=== PATIENT | female | born 1935 | race Caucasian/White ===

== ENCOUNTER 2021-06-30 09:06 | Outpatient (REF) | payer MEDICARE, SELFPAY ==
[2021-06-30 10:02] LABS: Hematocrit 46.6 % (37.0-47.0); Hemoglobin 14.8 g/dl (12.0-16.0); Mean Corpuscular HGB Conc 31.8 g/dl (31.0-35.0); Mean Corpuscular Hemoglobin 30.5 pg (27.0-33.0); Mean Corpuscular Volume 96.1 fL (80.0-98.0); Mean Platelet Volume 10.5 fL (9.4-12.3); Platelet Count 313 X10*3/uL (160-400); Red Blood Count 4.85 X10*6/uL (4.20-5.50); Red Cell Distribution Width 13.7 % (11.0-16.0); White Blood Count 5.8 X10*3/uL (4.8-10.8)
[2021-06-30 11:12] LABS: Anion Gap 12 (12-20); Blood Urea Nitrogen 15 mg/dL (9-16); Calcium 10.8 mg/dL (8.4-10.2); Carbon Dioxide 25 mmol/L (22-29); Chloride 105 mmol/L (96-108); Cholesterol 225 mg/dL; Estimated Glomerular Filt Rate > 60; Glucose Fasting 138 mg/dL (60-99); HDL Cholesterol 68 mg/dL; LDL Cholesterol Calculated 127 mg/dl; Potassium 4.4 mmol/L (3.3-5.1); Sodium 138 mmol/L (135-145); Triglycerides 150 mg/dL
== END 2021-06-30 09:07 | disposition home or self-care (01) ==
LOC: HO.LAB 09:06
PROVIDERS: Visit Provider Nurse Practitioner Family
DX: E66.3 Overweight (principal); E78.00 Pure hypercholesterolemia, unspecified; R41.3 Other amnesia
CPT/HCPCS: 36415; 80048; 80061; 82947; 85027

== ENCOUNTER 2021-08-03 08:59 | Outpatient (REF) | payer MEDICARE, SELFPAY ==
[2021-08-03 10:05] LABS: Estimated Average Glucose 105 mg/dL; Hemoglobin A1c % 5.3 %
[2021-08-08 10:53] LABS: Calcium, Ionized 5.8 mg/dL (4.8-5.6)
[2021-08-12 17:02] LABS: Parathyroid Hormone Related Pr 10 pg/mL (11-20)
== END 2021-08-03 09:00 | disposition home or self-care (01) ==
LOC: HO.LAB 08:59
PROVIDERS: Visit Provider Nurse Practitioner Family
DX: R73.01 Impaired fasting glucose (principal); E83.52 Hypercalcemia
CPT/HCPCS: 36415; 82330; 83036; 83519

== ENCOUNTER 2021-12-07 08:41 | Outpatient (REF) | payer MEDICARE, SELFPAY ==
[2021-12-07 10:07] LABS: Alanine Aminotransferase 18 U/L (0-31); Alkaline Phosphatase 102 U/L (39-117); Anion Gap 15 (12-20); Aspartate Amino Transferase 19 U/L (5-31); Bilirubin Total 1.4 mg/dL (0.0-1.0); Blood Urea Nitrogen 15 mg/dL (9-16); Calcium 10.9 mg/dL (8.4-10.2); Carbon Dioxide 26 mmol/L (22-29); Chloride 103 mmol/L (96-108); Cholesterol 237 mg/dL; Estimated Glomerular Filt Rate > 60; Glucose Fasting 117 mg/dL (60-99); HDL Cholesterol 70 mg/dL; LDL Cholesterol Calculated 135 mg/dl; Potassium 5.1 mmol/L (3.3-5.1); Sodium 139 mmol/L (135-145); Total Protein 7.3 g/dL (6.5-8.0); Triglycerides 164 mg/dL
[2021-12-07 10:30] LABS: Vitamin D 25-OH Total 31.2 ng/mL (>30)
[2021-12-08 12:26] LABS: Calcium (PTHI) 11.2 mg/dL (8.6-10.4); PTHI 169 pg/mL (16-77)
[2021-12-08 17:52] LABS: Calcium, Random Urine 15.1 mg/dL
[2021-12-09 17:22] LABS: Calcium, Ionized 5.7 mg/dL (4.8-5.6)
== END 2021-12-07 08:42 | disposition home or self-care (01) ==
LOC: HO.LAB 08:41
PROVIDERS: Visit Provider Internal Medicine
DX: E83.52 Hypercalcemia (principal); E78.5 Hyperlipidemia, unspecified
CPT/HCPCS: 36415; 80053; 80061; 82306; 82310; 82330; 83970

== ENCOUNTER → 2021-12-29 09:41 | Outpatient (BNVA) | payer MEDICARE, SELFPAY | PROVIDERS: PCP Internal Medicine; Visit Provider Internal Medicine Endocrinology, Diabetes & Metabolism | DX: E21.3 Hyperparathyroidism, unspecified (principal) | CPT/HCPCS: 99202 ==

== ENCOUNTER 2022-02-09 13:42 | Outpatient (REF) | payer MEDICARE, SELFPAY ==
--- NOTE | ~2022-02-09 | US_ITS ---
EXAMINATION: US RETROPERITONEAL LIMITED (RENAL ONLY) CLINICAL INFORMATION: Hyperparathyroidism, unspecified. COMPARISON: None TECHNIQUE: Real-time imaging of the kidneys. Limited visualization due to bowel gas and body habitus. FINDINGS: RIGHT KIDNEY: 8.3 x 5.0 x 3.9 cm (SAG x AP x TRV). Right renal calculi measure 0.3 cm mid pole and 0.2 cm upper pole. No hydronephrosis. Limited visualization. LEFT KIDNEY: 8.3 x 4.1 x 3.9 cm (SAG x AP x TRV). Mild fullness of the left renal collecting system with echogenic foci possibly representing debris. No obstructing renal calculi identified. Limited visualization. ADDITIONAL FINDINGS: Incidental note made on limited views of the gallbladder of cholelithiasis including a large stone measuring approximately 1.6 cm. Gallbladder was not distended, limiting evaluation. Dedicated views of the gallbladder with appropriate preparation recommended for further evaluation. US/US renal BI IMPRESSION: 1. Right renal nonobstructing calculi. 2. Mild fullness left renal collecting system with echogenic foci characteristic of debris. No left renal obstructing calculi identified. Limited visualization. 3. Incidental note made on limited views of the gallbladder of cholelithiasis including a large stone measuring approximately 1.6 cm. Gallbladder was not distended, limiting evaluation. Dedicated views of the gallbladder with appropriate preparation recommended for further evaluation.
--- NOTE | ~2022-02-09 | MM_ITS ---
EXAMINATION: BONE DENSITOMETRY CLINICAL INDICATION: Hyperparathyroidism, unspecified. COMPARISON: Previous BD dated 02/13/2011 and baseline BD dated 10/21/2007, spine and left hip. This is the patient's baseline examination for the left forearm radius 33%. TECHNIQUE: Using a [employer]ricity DXA System (software version: 13.1) manufactured by [employer], dual-energy x-ray absorptiometry was performed of the lumbar spine and left forearm radius 33%. The images are of good technical quality. Summary results are attached. FINDINGS: AP SPINE L1-L4: Current: BMD 0.762 g/cm2, Z-score -1.2, T-score -3.5, osteoporosis, 15.2% decrease from previous, 21.5% decrease from baseline (<5% change is not significant). Prior: BMD 0.899 g/cm2. Baseline: BMD 0.971 g/cm2. LEFT FEMUR, NECK: Current: BMD 0.511 g/cm2, Z-score -1.1, T-score -3.8, osteoporosis. Prior: BMD 0.683 g/cm2. Baseline: BMD 0.693 g/cm2. LEFT FEMUR, TOTAL: Current: BMD 0.566 g/cm2, Z-score -0.9, T-score -3.5, osteoporosis, 26.9% decrease from previous, 30.9% decrease from baseline (<5% change is not significant). Prior: BMD 0.774 g/cm2. Baseline: BMD 0.819 g/cm2. LEFT FOREARM RADIUS 33%: BMD 0.348 g/cm2, Z-score -2.6, T-score -6.0, osteoporosis. Prior: Not previously measured. IDENTIFIED RISK FACTORS: Dementia, menopause. HISTORY OF FRACTURE: None listed. MEDICATIONS: None listed. MM/XR DEXA appendicular skeleton IMPRESSION: 1. DIAGNOSIS: Osteoporosis based on the lowest T-score value of -6.0 in the forearm radius 33% applying World Health Organization criteria. 2. 10-YEAR FRACTURE RISK PREDICTION, FRAX: According to the guidelines, FRAX calculation should only be performed on patients in the osteopenia bone density category. Therefore, FRAX was not performed on this patient. 3. Treatment Recommendations: NOF guidelines recommend consideration for treatment in postmenopausal women and men age 50 and older presenting with the following: -A hip or vertebral (clinical or morphometric) fracture. -T-score less than or equal to -2.5 at the femoral neck or spine after appropriate evaluation to exclude secondary causes. -Low bone mass at the hip or spine and a 10-year fracture probability by FRAX of greater than or equal to 3% for hip fracture or greater than or equal to 20% for major osteoporotic fracture based on the [place] adapted WHO algorithm. 4. Other Recommendations: All treatment decisions require clinical judgment and consideration of individual patient factors, including patient preferences, comorbidities, previous drug use, risk factors not captured in the FRAX model (e.g. frailty, falls, vitamin D deficiency, increased bone turnover, interval significant decline in bone density) and possible under or overestimation of fracture risk by FRAX. Additional medical evaluation for secondary cause of low bone mineral density may be appropriate. FUTURE SCAN RECOMMENDATION: People with diagnosed cases of osteoporosis or at high risk for fracture should have regular bone mineral density tests. For patients eligible for Medicare, routine testing is allowed once every 2 years. The testing frequency can be increased to one year for patients who have rapidly progressing disease, those who are receiving or discontinuing medical therapy to restore bone mass, or have additional risk factors.
== END 2022-02-09 13:43 | disposition home or self-care (01) ==
LOC: HO.MAMMO 13:42
PROVIDERS: PCP Internal Medicine; Visit Provider Internal Medicine Endocrinology, Diabetes & Metabolism
DX: Z13.820 Encounter for screening for osteoporosis (principal); E21.3 Hyperparathyroidism, unspecified; F03.90 Unspecified dementia, unspecified severity, without behavioral disturbance, psychotic disturbance, mood disturbance, and anxiety; Z78.0 Asymptomatic menopausal state
CPT/HCPCS: 76775; 77081

== ENCOUNTER 2022-04-29 09:53 | Outpatient (REF) | payer MEDICARE, SELFPAY ==
[2022-04-29 11:43] LABS: Albumin Level 3.8 g/dL (3.5-5.0); Calcium 10.6 mg/dL (8.4-10.2); Estimated Glomerular Filt Rate > 60
== END 2022-04-29 09:54 | disposition home or self-care (01) ==
LOC: HO.LAB 09:53
PROVIDERS: PCP Internal Medicine; Visit Provider Internal Medicine Endocrinology, Diabetes & Metabolism
DX: E21.3 Hyperparathyroidism, unspecified (principal)
CPT/HCPCS: 36415; 82040; 82310; 82565

== ENCOUNTER → 2022-05-02 09:59 | Outpatient (BNVA) | payer MEDICARE, SELFPAY | PROVIDERS: PCP Internal Medicine; Visit Provider Internal Medicine Endocrinology, Diabetes & Metabolism | DX: E21.0 Primary hyperparathyroidism (principal) | CPT/HCPCS: 99212 ==

== ENCOUNTER 2022-08-16 09:00 | Outpatient (REF) | payer MEDICARE, SELFPAY ==
[2022-08-16 10:17] LABS: Anion Gap 10 (12-20); Blood Urea Nitrogen 12 mg/dL (9-16); Calcium 10.9 mg/dL (8.4-10.2); Carbon Dioxide 29 mmol/L (22-29); Chloride 105 mmol/L (96-108); Estimated Glomerular Filt Rate > 60; Glucose Fasting 107 mg/dL (60-99); Potassium 4.9 mmol/L (3.3-5.1); Sodium 139 mmol/L (135-145)
== END 2022-08-16 09:01 | disposition home or self-care (01) ==
LOC: HO.LAB 09:00
PROVIDERS: PCP Internal Medicine; Visit Provider Nurse Practitioner Family
DX: Z13.1 Encounter for screening for diabetes mellitus (principal)
CPT/HCPCS: 36415; 80048

== ENCOUNTER 2022-09-13 09:17 | Outpatient (REF) | payer MEDICARE, SELFPAY ==
[2022-09-13 10:09] LABS: Estimated Average Glucose 100 mg/dL; Hemoglobin A1c % 5.1 %
== END 2022-09-13 09:18 | disposition home or self-care (01) ==
LOC: HO.LAB 09:17
PROVIDERS: Visit Provider Nurse Practitioner Family
DX: R73.01 Impaired fasting glucose (principal)
CPT/HCPCS: 36415; 83036

== ENCOUNTER 2023-05-29 14:14 | Outpatient (AMB) | payer MEDICARE, SELFPAY ==
[2023-05-29 14:32] VITALS: BP 126/70; BMI 25.6
--- NOTE | 2023-05-29 14:32 | MHC.PC.OV ---
Vital Signs 05/29/23 14:32 Height 4 ft 11 in Weight 127 lb BMI 25.6 BP 126/70 Blood Pressure Location Lt brachial Position Sitting Intake Visit Reasons: follow up for dementia Intake Note: Patient here for follow up dementia Call Center Specialist Required: No Accompanied by: niece Allergies No Known Allergies Allergy (Verified 05/29/23 14:49) Medication List - Last Reconciled 05/29/23 by Alicia Song MD donepezil 10 mg PO DAILY Tobacco use date assessed: 05/29/23 Fall risk assessment: No Falls in past year Last assessed Fall Risk: 05/29/23 Dental Screening Dental Screen Date: 05/29/23 Did you have a dental visit in the last 12 months?: Yes Did you have a dental problem in the last 6 months where you did not have access to dental care?: No Was dental information given to patient?: Patient has dentist HPI HPI Comments History of Present Illness Details This is an 87-year-old female that comes accompanied by niece for follow-up on her memory loss. She has severe Alzheimer's dementia and had a mini-mental exam today score in 17/30. She follows with Neurology which prescribe her donepezil. She is able to walk with no assistive device and lives by herself but has many people constantly watching her and visiting her including family, neighbors and LUG LOADER. She is able to eat by herself but not able to cook. She is also not able to get dressed/undress on her own. Not able to bathe or do toileting. She definitely needs supervision in all the basic activities of daily living except eating and mobility transfer. [facility] Medical History (Updated 05/29/23 @ 15:27 by Alicia Song MD) Hyperparathyroidism Hypoparathyroidism Mild cognitive impairment Memory change Surgical History History of removal of pigmented skin lesion History of biopsy History of abdominoplasty History of carpal tunnel release History of nasal surgery Family History Father Alcoholic cirrhosis Mother Past heart attack Maternal Grandmother Cancer Maternal Grandfather CVD (cardiovascular disease) Past heart attack Brother Past heart attack Sister No problems noted. Family/Other Substance use disorder Social History Household Members: None Housing: House Alcohol intake: former Patient Tobacco Use Status: Former Tobacco user e-Cigarette/Vaping Use: Never Used Second Hand Smoke Exposure: No service: No Current occupational status: retired Cognitive needs: Yes Hearing needs: No Vision needs: Yes (Glasses) Questionnaire PHQ-9 Over the last 2 weeks, how often have you been bothered by any of the following problems? 1. Little interest or pleasure in doing things: not at all 2. Feeling down, depressed, or hopeless: not at all 3. Trouble falling or staying asleep, or sleeping too much: not at all 4. Feeling tired or having little energy: not at all 5. Poor appetite or overeating: not at all 6. Feeling bad about yourself - or that you are a failure or have let yourself or your family down: not at all 7. Trouble concentrating on things, such as reading the newspaper or watching television: not at all 8. Moving or speaking so slowly that other people could have noticed. Or the opposite - being so fidgety or restless that you have been moving around a lot more than usual: not at all 9. Thoughts that you would be better off or of hurting yourself in some way: not at all Total score: 0 Depression Screening Interpretation: Negative Depression Screening Done: Yes 84751 - PHQ-9 Billing: Yes Source: Developed by Drs. Kishor Mendenhall, Lelo Rai, Emir Hartman and colleagues, with an educational jaymie from [employer] Thrive Questionnaire Date Thrive assessed: 05/29/23 I am a: Parent/Caregiver What is your living situation today?: I have a steady place to live Within the past 12 months, did the food you bought not last and you didn't have the money to get more?: Never true Within the past 12 months, did you worry whether your food would run out before you got money to buy more?: Never true Do you have trouble paying for medicines?: No Do you have trouble getting transportation to medical appointments?: No Do you have trouble paying your heating and electricity bill?: No Do you have trouble taking care of your child, family member or friend?: No Do you have trouble with day-to-day activities such as bathing, preparing meals, shopping, managing finances, etc.?: No Are you currently unemployed and looking for a job?: No Are you interested in more education?: No Please select the resources that you would like help with: None Currently or been in a relationship where the following occur: no concerns reported THRIVE Score: 0 AUDIT C Alcohol Use Questionnaire (AUDIT-C) 1. How often do you have a drink containing alcohol?: Never Total Score: 0 GENNARO-7 AMB Questionnaire GENNARO-7 Date GENNARO - 7 assessed: 05/29/23 Feeling nervous, anxious, or on edge: 0 = Not at all Not being able to stop or control worryin = Not at all Worrying too much about different things: 0 = Not at all Trouble relaxin = Not at all Being so restless that it is hard to sit still: 0 = Not at all Becoming easily annoyed or irritable: 0 = Not at all Feeling afraid as if something awful might happen: 0 = Not at all Total GENNARO-7 score (0-4 normal; 5-9 mild; 10-14 moderate; 15-21 severe): 0 Source: Developed by Drs. Kishor Mendenhall, Lelo Rai, Emir Hartman and colleagues, with an educational jaymie from [employer] GENNARO-7 Assessment Billing GENNARO-7 Assessment Tool: GENNARO-7 Assessment 30180 Review of Systems Const All systems reviewed & are unremarkable except as noted in HPI and below Eyes Reports no additional complaints, Denies change in vision and Denies other visual disturbances Card Denies chest pain at rest, Denies chest pain with activity, Denies edema, Denies irregular heart rhythm, Denies claudication, Denies dyspnea, Denies dyspnea on exertion, Denies orthopnea, Denies paroxysmal nocturnal dyspnea and Denies slow heart rate Resp Denies cough, Denies dyspnea and Denies dyspnea on exertion GI Denies abdominal pain, Denies change in bowel habits, Denies excessive flatus, Denies nausea and Denies vomiting Denies urinary incontinence, Denies urinary hesitancy and Denies urinary urgency Musc Denies abnormal gait, Denies atrophy, Denies deformity and Denies limited range of motion Skin/Breast Denies bleeding lesions, Denies changing lesions and Denies rash Neuro Denies abnormal gait and Denies lack of coordination Physical exam (Primary Care) Vital Signs: Last Vital Signs BP 126/70 05/29/23 14:32 BMI result Body Mass Index 25.6 Tobacco/Smoking Status: Tobacco use Status Tobacco use date assessed 05/29/23 05/29/23 14:39 Patient Tobacco Use Status Former Tobacco user 05/29/23 14:39 e-Cigarette/Vaping Use Never Used 05/29/23 14:39 PHQ-9: PHQ-9 Score PHQ-9: Total score 0 05/29/23 14:39 Depression Screening Interpretation: Negative Thrive Assessment: Date of Thrive Assessment Date Thrive assessed 05/29/23 05/29/23 14:39 Currently or been in a relationship where the following occur: no concerns reported Const Orientation/consciousness: oriented to person Eyes General: appearance normal, both eyes and all related structures Eyelids: Yes eyelids normal Conjunctivae: conjunctivae normal Neck Neck: Yes normal visual inspection and Yes supple Resp Effort & Inspection: normal respiratory effort Auscultation: clear to auscultation bilaterally Cardio Jugular venous distension: no JVD Rhythm: regular rhythm Heart sounds: S1 normal heart sound present and S2 normal heart sound present Neuro Other: Not oriented to time General: oriented to person, gait normal and moves all extremities Extrem General: Yes full ROM Assessment and Plan Assessment & Plan (1) Alzheimer's dementia: Code(s): G30.9 - Alzheimer's disease, unspecified; F02.80 - Dementia in other diseases classified elsewhere, unspecified severity, without behavioral disturbance, psychotic disturbance, mood disturbance, and anxiety Qualifiers: Alzheimer's disease onset: unspecified onset Dementia severity: moderate Dementia behavioral or psychological symptom: without behavioral, psychotic, or mood disturbance or anxiety Qualified Code(s): G30.9 - Alzheimer's disease, unspecified; F02.B0 - Dementia in other diseases classified elsewhere, moderate, without behavioral disturbance, psychotic disturbance, mood disturbance, and anxiety Plan: Continue donepezil. Follow-up with Neurology. Mini-mental done today score was 17/30. Coding Level of Care Code Est Pt Level 3 (82454) Diagnoses 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, psychotic disturbance, mood disturbance, or anxiety, unspecified timing of dementia onset G30.9; F02.B0 Alzheimer's disease onset: unspecified onset Dementia severity: moderate Dementia behavioral or psychological symptom: without behavioral, psychotic, or mood disturbance or anxiety Additional Codes GENNARO-7 Assessment Billing - GENNARO-7 Assessment Tool: GENNARO-7 Assessment [id number] ([id number]) Time Spent (min) 30
== END 2023-05-29 15:31 | disposition home or self-care (01) ==
PROVIDERS: PCP Internal Medicine; Visit Provider Internal Medicine
DX: G30.9 Alzheimer's disease, unspecified (principal); F02.B0 Dementia in other diseases classified elsewhere, moderate, without behavioral disturbance, psychotic disturbance, mood disturbance, and anxiety
CPT/HCPCS: 99213

== ENCOUNTER 2023-10-17 14:18 | Outpatient (AMB) | payer MEDICARE, SELFPAY ==
--- NOTE | 2023-10-17 14:31 | AM.OFFVISMDC ---
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 PPP handed to patient. Able to walk with no assistive device. Lives alone and has people that visit her daily. Whisper test was abnormal bilaterally and I will refer her to a hearing test. [facility] Medical History (Updated 10/17/23 @ 15:17 by Alicia Song MD) Hyperparathyroidism Hypoparathyroidism Mild cognitive impairment Memory change Surgical History History of removal of pigmented skin lesion History of biopsy History of abdominoplasty History of carpal tunnel release History of nasal surgery Family History Father Alcoholic cirrhosis Mother Past heart attack Maternal Grandmother Cancer Maternal Grandfather CVD (cardiovascular disease) Past heart attack Brother Past heart attack Sister No problems noted. Family/Other Substance use disorder Social History Household Members: None Housing: House Alcohol intake: former Patient Tobacco Use Status: Former Tobacco user e-Cigarette/Vaping Use: Never Used Second Hand Smoke Exposure: No service: No Current occupational status: retired Cognitive needs: Yes Hearing needs: No Vision needs: Yes (Glasses) Questionnaire Medicare Wellness Checkup What is your age?: 80 or older What gender do you identify with?: female During the past 4 weeks, how much have you been bothered by emotional problems such as feeling anxious, depressed, irritable, sad or downhearted, and blue?: quite a bit During the past 4 weeks, has your physical & emotional health limited your social activities with family, friends, neighbors, or groups?: not at all During the past 4 weeks, how much bodily pain have you generally had?: no pain During the past 4 weeks, was someone available to help you if you needed & wanted help?: yes, a little During the past 4 weeks, what was the hardest physical activity you could do for at least 2 minutes?: very light Can you get to places out of walking distance without help? (For eg., can you travel alone on buses, taxis or drive your car?): Yes Can you go shopping for groceries or clothes without someone's help?: No Can you prepare your own meals?: No Can you do your housework without help?: No Can you handle your own money without help?: No During the past 4 weeks, how would you rate your health in general?: good During the past 4 weeks how have things been going for you?: good & bad parts about equal Are you having difficulties driving your car?: not applicable, I don't use a car Do you always fasten your seat belt when you are in a car?: yes, usually During past 4 weeks, have you been bothered by the following: never: Falling or dizzy when standing up, Sexual problems?, Trouble eating well?, Teeth or denture problems?, Problems using the telephone? and Tiredness or fatigue? Have you fallen 2 or more times in the past year?: No Are you afraid of falling?: No Are you a smoker?: no During the past 4 weeks, how many drinks of wine, beer, or other alcoholic beverages did you have?: no alcohol at all Do you exercise for about 20 minutes 3 or more times a week?: no, I usually do not exercise this much Have you been given information to help with the following?: yes: Keeping track of your medications? How often do you have trouble taking medicines the way you have been told to take them?: sometimes I take medicine as prescribed How confident are you that you can control & manage most of your health problems?: not very confident What is your race?: White Mini Mental State Exam (MMSE) Orientation Where are we (state) (county) (town or city) (hospital) (floor)?: state, county, town or city and floor Registration Name of 3 unrelated objects clearly and slowly, then ask patient to repeat all 3 of them. (1st repeat determines score. Make sure they can repeat all three): object 1, object 2 and object 3 Attention & Calculation (CHOOSE ONE) Spell WORLD backwards (DLROW): 4 letters Recall Ask patient to repeat the 3 items from question #3.: object 1 and object 2 Language Show patient a wristwatch & ask what it is. Repeat for pencil.: watch and pencil Ask the patient to repeat the phrase 'No ifs, ands, or buts' after you.: incorrect Ask the patient to 'take a piece of paper with their right hand' 'fold paper in half' 'place paper on floor': take paper in right hand, fold paper in half and place paper on floor Give patient a blank piece of paper & ask to write a sentence. Score if it contains a noun & verb.: sentence contains subject and verb Score Score: 19 Activity of Daily Living Bathing - sponge bath, tub bath or shower: receives help in bathing more than one body part (or not bathed) Dressing - getting clothes from closets & drawers, including inner/outer garments & fasteners.: gets clothes & gets completely dressed without help Transfer: moves in & out of bed and chair without help (may use support object) Continence: has occasional 'accidents' Feeding: feeds self except getting help in cutting meat/buttering bread Total Score: 1 Information obtained from: informant Using telephone: independent Traveling: dependent Shopping: dependent Preparing meals: dependent Housework: dependent Taking medicine: independent Managing money: dependent PHQ-9 Over the last 2 weeks, how often have you been bothered by any of the following problems? 1. Little interest or pleasure in doing things: not at all 2. Feeling down, depressed, or hopeless: several days 3. Trouble falling or staying asleep, or sleeping too much: more than half the days 4. Feeling tired or having little energy: several days 5. Poor appetite or overeating: several days 6. Feeling bad about yourself - or that you are a failure or have let yourself or your family down: several days 7. Trouble concentrating on things, such as reading the newspaper or watching television: several days 8. Moving or speaking so slowly that other people could have noticed. Or the opposite - being so fidgety or restless that you have been moving around a lot more than usual: not at all 9. Thoughts that you would be better off or of hurting yourself in some way: several days Total score: 8 Depression Screening Interpretation: Positive Depression Screening Follow-up: Existing condition and Follow-up Visit Requested Depression Screening Done: Yes 94228 - PHQ-9 Billing: Yes Source: Developed by Drs. Kishor Mendenhall, Lelo Rai, Emir Hartman and colleagues, with an educational jaymie from [employer]. Review of Systems Const All systems reviewed & are unremarkable except as noted in HPI and below Card Denies chest pain at rest, Denies chest pain with activity, Denies edema, Denies irregular heart rhythm, Denies claudication, Denies dyspnea, Denies dyspnea on exertion, Denies orthopnea, Denies paroxysmal nocturnal dyspnea and Denies slow heart rate Resp Denies cough, Denies dyspnea and Denies dyspnea on exertion Physical Exam Vital Signs: Last Vital Signs Pulse 88 10/17/23 14:35 BP 102/66 10/17/23 14:35 Pulse Ox 95 10/17/23 14:35 Oxygen Delivery Method Room Air 10/17/23 14:35 BMI result Body Mass Index 24.9 Const Orientation/consciousness: oriented to person and oriented to place HEENT Ears: hearing grossly impaired bilaterally Resp Effort & Inspection: normal respiratory effort Auscultation: clear to auscultation bilaterally Cardio Jugular venous distension: no JVD Rate: regular rate Rhythm: regular rhythm Heart sounds: S1 normal heart sound present and S2 normal heart sound present Neuro General: oriented to person and oriented to place Gait exam (Neuro): Normal gait present Romberg Test: Negative Extrem General: Yes full ROM Assessment & Plan Assessment & Plan (1) Encounter for Medicare annual wellness exam: Code(s): Z00.00 - Encounter for general adult medical examination without abnormal findings Plan: Repeat in a year. (2) Alzheimer's dementia: Code(s): G30.9 - Alzheimer's disease, unspecified; F02.80 - Dementia in other diseases classified elsewhere, unspecified severity, without behavioral disturbance, psychotic disturbance, mood disturbance, and anxiety Qualifiers: Alzheimer's disease onset: unspecified onset Dementia severity: moderate Dementia behavioral or psychological symptom: without behavioral, psychotic, or mood disturbance or anxiety Qualified Code(s): G30.9 - Alzheimer's disease, unspecified; F02.B0 - Dementia in other diseases classified elsewhere, moderate, without behavioral disturbance, psychotic disturbance, mood disturbance, and anxiety Plan: Continue donepezil. Follow-up with Neurology. Orders: Referrals Speech and Hearing Referral H91.90 - Unspecified hearing loss, unspecified ear Quality Reporting (2019) Depression/Bipolar (159/160/161/177) PHQ-9: Total score: 8 Coding Level of Care Code Medicare First (G0438) Diagnoses Encounter for Medicare annual wellness exam Z00.00 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, psychotic disturbance, mood disturbance, or anxiety, unspecified timing of dementia onset G30.9; F02.B0 Alzheimer's disease onset: unspecified onset Dementia severity: moderate Dementia behavioral or psychological symptom: without behavioral, psychotic, or mood disturbance or anxiety CPT Codes Advance Care Planning - Advance Care Planning discussion: On file, no changes ([id number]) Time Spent (min) 35 Advance Care Planning Advance Care Planning discussion: On file, no changes Forms completed: Health Care Proxy
[2023-10-17 14:35] VITALS: BP 102/66; PULSE 88; O2SAT 95; BMI 24.9
== END 2023-10-17 15:17 | disposition home or self-care (01) ==
PROVIDERS: PCP Internal Medicine; Visit Provider Internal Medicine
DX: Z00.00 Encounter for general adult medical examination without abnormal findings (principal); G30.9 Alzheimer's disease, unspecified; F02.B0 Dementia in other diseases classified elsewhere, moderate, without behavioral disturbance, psychotic disturbance, mood disturbance, and anxiety
CPT/HCPCS: 1123F; G0438

== ENCOUNTER 2024-04-04 11:42 | Emergency (ER) | payer MEDICARE, SELFPAY ==
--- NOTE | ~2024-04-04 | XR_ITS ---
EXAMINATION: XR LUMBOSACRAL SPINE CLINICAL INFORMATION: low back pain, fall COMPARISON: None available. TECHNIQUE: Three views of the lumbosacral spine. FINDINGS: No significant scoliosis. Normal lumbar lordosis. Possible mild osteopenia. No gross compression deformities, fractures, traumatic subluxation, or suspicious bone lesions. No subluxations are evident aside from a minimal degenerative anterolisthesis of L4 on L5. Mild concavity the superior endplate of L1, chronic. Mild to moderate diffuse disc degeneration is present, most significant at L2-3, L4-5 and L5-S1. There are degenerative facet changes predominantly L4-S1. SI joints and sacrum appear normal. No soft tissue abnormalities. XR/XR lumbar spine 2-3V IMPRESSION: 1. No acute bony abnormalities or evidence of fracture or traumatic subluxation. 2. Minimal chronic superior endplate concavity L1. 3. Mild to moderate degenerative spondylosis as described. Electronically signed by: Jorge Hein MD 04/04/2024 01:25 PM [facility]
--- NOTE | ~2024-04-04 | CT_ITS ---
EXAMINATION: CT CERVICAL SPINE WITHOUT CONTRAST CLINICAL INFORMATION: Fall, pain. COMPARISON: None available. TECHNIQUE: Spiral CT imaging of the cervical spine was performed in axial plane from the petrous ridges to the superior mediastinum without IV contrast. Sagittal, coronal, and thin section axial reformatted images were constructed from the axial data set. This CT examination was performed using dose optimization techniques as appropriate, variously including the following: *Automated exposure control *Adjustment of mA and/or kV according to patient size (this includes techniques or standardized protocols for targeted exams where dose is matched to indication/reason for exam; i.e. extremities or head) *Use of iterative reconstruction technique DLP: 227 mGy-cm FINDINGS: There is normal bone mineralization. There is no fracture, compression deformity, evidence of traumatic subluxation, or suspicious focal bony lesion. There is a mild levoconvex scoliosis, apex at C4. There is minimal straightening of the normal lordosis, nonspecific. There is a 3 mm degenerative type anterolisthesis C4 on C5, and C6 and C7. Alignment is otherwise anatomic. The craniocervical junction and atlantoaxial joint are intact and normally aligned. Severe disc degeneration and disc space loss noted C3-4 and C5-6. Mild degeneration otherwise. No large disc herniation or evidence of central canal stenosis. Facets are normally aligned. There are right greater than left multilevel degenerative facet changes, resulting in significant neural foraminal encroachment on the right at C3-4, C4-5, and C5-6. On the left, moderate neural foraminal narrowing at C3-4. Prevertebral soft tissues are normal. The imaged thyroid is normal. Lung apices demonstrate minimal scarring but are otherwise clear. Mildly patulous esophagus noted. CT/CT cervical spine wo IV con IMPRESSION: 1. No CT evidence of acute cervical spine fracture or injury. 2. Moderate degenerative spondylosis with mild levoconvex scoliosis. See above. Electronically signed by: Jorge Hein MD 04/04/2024 01:22 PM [facility]
--- NOTE | ~2024-04-04 | CT_ITS ---
EXAMINATION: CT HEAD WITHOUT CONTRAST CLINICAL INFORMATION: Fall, pain. COMPARISON: 04/19/2020. TECHNIQUE: Contiguous axial imaging was performed from the skull base to vertex without intravenous administration of contrast. This CT examination was performed using dose optimization techniques as appropriate, variously including the following: *Automated exposure control *Adjustment of mA and/or kV according to patient size (this includes techniques or standardized protocols for targeted exams where dose is matched to indication/reason for exam; i.e. extremities or head) *Use of iterative reconstruction technique DLP: 483 mGy-cm FINDINGS: There is no evidence of intracranial hemorrhage or extra-axial fluid collection. There is no mass effect, or edema. No CT evidence of acute territorial infarct. Ventricles, sulci, and cisterns are mildly diffusely prominent, in keeping with age-related cerebral and cerebellar volume loss. No hydrocephalus. No midline shift. Negative hyperdense MCA sign. Negative insular ribbon sign. Mild to moderate hypoattenuating white matter changes in keeping with small vessel ischemia. 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 Normal sella noted. Mild atheromatous calcification of the bilateral carotid siphons and V4 segments vertebral arteries bilaterally. Globes and orbital contents image normally. No extracranial soft tissue abnormalities. The paranasal sinuses, mastoid air cells, and tympanic cavities are normally aerated. No suspicious bony abnormalities. No fractures seen. Mild left greater than right degenerative TM joint changes. CT/CT head/brain wo IV con IMPRESSION: 1. No acute intracranial abnormality. No posttraumatic findings. 2. Chronic age-related findings as discussed. Electronically signed by: Jorge Hein MD 04/04/2024 01:05 PM [facility]
--- NOTE | ~2024-04-04 | XR_ITS ---
EXAMINATION: XR HIP, RIGHT CLINICAL INFORMATION: pain, injury COMPARISON: None available. TECHNIQUE: AP pelvis, and 2 views right hip. FINDINGS: Normal bone mineralization. No fracture, dislocation, or suspicious bone lesion. There is a bone island in the left lateral ilium. Normal joint spaces of both hips. The iliopectineal and ilioischial lines are intact. Minimal degenerative changes SI joints. Sacrum appears intact. Normal lower lumbar spine. Soft tissues are unremarkable. XR/XR hip RT w PEL1V IMPRESSION: No acute findings right hip or pelvis. Electronically signed by: Jorge Hein MD 04/04/2024 12:59 PM [facility] [place]
[2024-04-04 11:46] VITALS: BP 115/62; PULSE 85; RESP 19; TEMP 36.6; O2SAT 98; BMI 24.5
--- NOTE | 2024-04-04 11:47 | ED_ITS ---
HPI - General Adult General Chief complaint: Fall Stated complaint: Fall - hip pain Time Seen by Provider: 04/04/24 14:43 Source: patient and family (patient's niece) Mode of arrival: ambulatory Limitations: physical limitation (patient has a history of Alzheimer's) History of Present Illness ED Provider: Mary Petit PA-C HPI narrative: Patient is an 88 year old assigned female at with a history of Alzheimer's presenting to the emergency department today with right hip and low back pain after a slip and fall. Patient states that 2 days ago she slipped and fell, landing on her right side with right hip and low back pain. Patient denies any head strike, loss of consciousness, dizziness, lightheadedness, abdominal pain, nausea, vomiting, fever, chills, blurry vision, double vision, loss of vision, chest pain, difficulty breathing, shortness of breath, back pain, night sweats, pain with urination, increased urinary frequency, increased urinary urgency, blood in her urine or stool, syncope or a near syncopal episode, bowel incontinence, bladder incontinence, or any other complaints at this time. Onset (ago): day(s) (2) Location: right (hip + low back pain) Relieving factors: none Exacerbating factors: none Associated symptoms: denies other symptoms Treatments prior to arrival: none Related Data Home Medications ?Medication ?Instructions ?Recorded ?Confirmed donepezil 10 mg tablet 10 mg PO DAILY 02/09/21 10/17/23 Allergies Allergy/AdvReac Type Severity Reaction Status Date / Time No Known Allergies Allergy Verified 04/04/24 11:47 Review of Systems Constitutional: Constitutional: Reports no additional constitutional co mplaints, Denies chills, Denies fever(s) and Denies night sweats Eyes: Eyes: Reports no additional eye complaints, Denies blurry vision, Denies change in vision, Denies diplopia, Denies eye discharge, Denies loss of vision and Denies eye pain ENT: Denies dizziness Cardiovascular: Cardiovascular: Reports no additional cardiovascular complaints, Denies chest pain, Denies lightheadedness, Denies Loss of Consciousness and Denies dyspnea Respiratory: Respiratory: Reports no additional respiratory complaints and Denies dyspnea Gastrointestinal: Gastrointestinal: Reports no additional gastrointestinal complaints, Denies abdominal pain, Denies melena, Denies hematochezia, Denies change in bowel habits and Denies change in stool character Genitourinary: Genitourinary: Denies hematuria, Denies urinary frequency, Denies dysuria, Denies urinary incontinence, Denies urinary hesitancy and Denies urinary urgency Musculoskeletal: Musculoskeletal: Reports no additional musculoskeletal complaints, Denies numbness and Denies tingling Comments: right hip and low back pain Neurologic: Denies dizziness, Denies loss of vision, Denies numbness and Denies tingling Psychiatric: Psychiatric: Reports no additional psychiatric complaints Endocrine: Endocrine: Reports no additional endocrine complaints Hematologic/Lymphatic: Hematologic/Lymphatic: Reports no additional hematologic/lymphatic complaints Allergic/Immunologic: Allergic/Immunologic: Reports no additional allergic/immunologic complaints PMFSH Past Medical History Attestation statement: The following information was validated with the patient. Source: old records reviewed and nursing notes reviewed Medical History Hyperparathyroidism Hypoparathyroidism Mild cognitive impairment Memory change Surgical History History of removal of pigmented skin lesion History of biopsy History of abdominoplasty History of carpal tunnel release History of nasal surgery Family History Family History Father Alcoholic cirrhosis Mother Past heart attack Maternal Grandmother Cancer Maternal Grandfather CVD (cardiovascular disease) Past heart attack Brother Past heart attack Sister No problems noted. Family/Other Substance use disorder Social History Social History Household Members: None Housing: House Alcohol intake: former Patient Tobacco Use Status: Former Tobacco user e-Cigarette/Vaping Use: Never Used Second Hand Smoke Exposure: No Advance Directives Date on File: 06/22/23 service: No Current occupational status: retired Cognitive needs: Yes Hearing needs: No Vision needs: Yes (Glasses) Physical Exam ED Vital Signs: Vital Signs - 24 hr 04/04/24 11:46 Temperature 98 F Pulse Rate 85 Respiratory Rate 19 Blood Pressure 115/62 Pulse Oximetry 98 Oxygen Delivery Method Room Air BMI result Body Mass Index 24.5 Const General: cooperative, no acute distress, alert and awake Nutritional Appearance: well nourished Orientation/consciousness: patient oriented x3 Limitations: no limitations HENMT Head: Yes normal to inspection and Yes atraumatic Ears: hearing grossly normal bilaterally and external ears normal General nose exam: Normal external nose present, no nasal discharge noted and no epistaxis Face and sinus: Yes normal facial exam, No abrasion and No laceration Mouth: Normal oral and palatal mucosa present, no drooling and no muffled voice Eyes General: appearance normal, both eyes and all related structures Periorbital: periorbital findings normal Eyelids: Yes eyelids normal Conjunctivae: conjunctivae normal Pupils: Equal, round and reactive pupils present EOM: EOMs intact bilaterally Neck Neck: Yes normal visual inspection, Yes full ROM and Yes no lymphadenopathy Chest Chest palpation & inspection: normal inspection of the chest Resp Effort & Inspection: normal respiratory effort and able to speak in complete sentences GI Inspection: Yes normal to inspection Neuro General: patient oriented x3 and moves all extremities Cranial nerves: Yes Equal, round and reactive pupils present Cognition (Neuro): normal cognition Extrem General: Yes normal to inspection, Yes full ROM and Yes capillary refill normal Psych Appearance: grossly normal Mental Status: mental status grossly normal Affect: normal affect Attitude: cooperative Thought process: Normal thought process present Thought content: Normal thought content present Insight: Good insight present (Psych) Course Course Course Narrative: RME performed by Mary Petit PA-C. Patient is a 88 year old assigned female at presenting to the emergency department with right hip and low back pain after a fall. Detailed physical exam and review of systems are deferred to the associate financial advisor. Imaging ordered. Patient placed back in the waiting room pending room availability and results. Medical Decision Making Medical Decision Making MDM Narrative: Patient is an 88 year old assigned female at with a history of Alzheimer's presenting to the emergency department today with right hip and low back pain after a slip and fall. Patient's physical exam was unremarkable. Patient's right hip / pelvis x-ray showed no acute process. Patient's CT head, c-spine, and lumbar spine showed no acute process. I explained my physical exam findings as well as all test results to the patient and the patient's niece. I answered all questions asked by the patient and the patient's niece. I stressed the importance of the patient taking her medication as directed (either prescribed or as the over the counter packaging recommends). I stressed the importance of the patient following up with her primary care provider. I stressed the importance of the patient returning to the emergency department immediately if her symptoms were to worsen or if she were to develop any dizziness, shortness of breath, difficulty breathing, chest pain, blurry vision, loss of vision, nausea, vomiting, abdominal pain, fever, chills, back pain, or any other complaints. Patient and the patient's niece verbalized agreement and understanding with this treatment plan and discharge. Differential Diagnosis Differential Diagnoses: The differential diagnosis associated with the presentation includes Right hip pain Right low back pain Fall Contusion Fracture Admission/Observation Consideration of admission/observation: Escalation of care including admission/observation considered Patient would have been admitted to the hospital had her work up had any findings where hospital admission was appropriate and her clinical presentation warranted hospital admission. Independent Interpretation I performed an independent interpretation of an: Plain X-Ray and CT Scan Interpretation: My interpretation is in agreement with the radiologist's impression of these imaging studies. Report Number: [id number]: Total DLP = 483.00 mGy-cm EXAMINATION: CT HEAD WITHOUT CONTRAST CLINICAL INFORMATION: Fall, pain. COMPARISON: 04/19/2020. TECHNIQUE: Contiguous axial imaging was performed from the skull base to vertex without intravenous administration of contrast. This CT examination was performed using dose optimization techniques as appropriate, variously including the following: *Automated exposure control *Adjustment of mA and/or kV according to patient size (this includes techniques or standardized protocols for targeted exams where dose is matched to indication/reason for exam; i.e. extremities or head) *Use of iterative reconstruction technique DLP: 483 mGy-cm FINDINGS: There is no evidence of intracranial hemorrhage or extra-axial fluid collection. There is no mass effect, or edema. No CT evidence of acute territorial infarct. Ventricles, sulci, and cisterns are mildly diffusely prominent, in keeping with age-related cerebral and cerebellar volume loss. No hydrocephalus. No midline shift. Negative hyperdense MCA sign. Negative insular ribbon sign. Mild to moderate hypoattenuating white matter changes in keeping with small vessel ischemia. 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 Normal sella noted. Mild atheromatous calcification of the bilateral carotid siphons and V4 segments vertebral arteries bilaterally. Globes and orbital contents image normally. No extracranial soft tissue abnormalities. The paranasal sinuses, mastoid air cells, and tympanic cavities are normally aerated. No suspicious bony abnormalities. No fractures seen. Mild left greater than right degenerative TM joint changes. CT/CT head/brain wo IV con IMPRESSION: 1. No acute intracranial abnormality. No posttraumatic findings. 2. Chronic age-related findings as discussed. Electronically signed by: Jorge Hein MD 04/04/2024 01:05 PM [facility] [place] By: Jorge Hein MD Signed By: Electronically signed by Jorge Hein MD 04/04/24 1306 EXAMINATION: XR LUMBOSACRAL SPINE CLINICAL INFORMATION: low back pain, fall COMPARISON: None available. TECHNIQUE: Three views of the lumbosacral spine. FINDINGS: No significant scoliosis. Normal lumbar lordosis. Possible mild osteopenia. No gross compression deformities, fractures, traumatic subluxation, or suspicious bone lesions. No subluxations are evident aside from a minimal degenerative anterolisthesis of L4 on L5. Mild concavity the superior endplate of L1, chronic. Mild to moderate diffuse disc degeneration is present, most significant at L2-3, L4-5 and L5-S1. There are degenerative facet changes predominantly L4-S1. SI joints and sacrum appear normal. No soft tissue abnormalities. XR/XR lumbar spine 2-3V IMPRESSION: 1. No acute bony abnormalities or evidence of fracture or traumatic subluxation. 2. Minimal chronic superior endplate concavity L1. 3. Mild to moderate degenerative spondylosis as described. Electronically signed by: Jorge Hein MD 04/04/2024 01:25 PM [facility] [place]ict[place] By: Jorge Hein MD Signed By: Electronically signed by Jorge Hein MD 04/04/24 1325 EXAMINATION: CT CERVICAL SPINE WITHOUT CONTRAST CLINICAL INFORMATION: Fall, pain. COMPARISON: None available. TECHNIQUE: Spiral CT imaging of the cervical spine was performed in axial plane from the petrous ridges to the superior mediastinum without IV contrast. Sagittal, coronal, and thin section axial reformatted images were constructed from the axial data set. This CT examination was performed using dose optimization techniques as appropriate, variously including the following: *Automated exposure control *Adjustment of mA and/or kV according to patient size (this includes techniques or standardized protocols for targeted exams where dose is matched to indication/reason for exam; i.e. extremities or head) *Use of iterative reconstruction technique DLP: 227 mGy-cm FINDINGS: There is normal bone mineralization. There is no fracture, compression deformity, evidence of traumatic subluxation, or suspicious focal bony lesion. There is a mild levoconvex scoliosis, apex at C4. There is minimal straightening of the normal lordosis, nonspecific. There is a 3 mm degenerative type anterolisthesis C4 on C5, and C6 and C7. Alignment is otherwise anatomic. The craniocervical junction and atlantoaxial joint are intact and normally aligned. Severe disc degeneration and disc space loss noted C3-4 and C5-6. Mild degeneration otherwise. No large disc herniation or evidence of central canal stenosis. Facets are normally aligned. There are right greater than left multilevel d egenerative facet changes, resulting in significant neural foraminal encroachment on the right at C3-4, C4-5, and C5-6. On the left, moderate neural foraminal narrowing at C3-4. Prevertebral soft tissues are normal. The imaged thyroid is normal. Lung apices demonstrate minimal scarring but are otherwise clear. Mildly patulous esophagus noted. CT/CT cervical spine wo IV con IMPRESSION: 1. No CT evidence of acute cervical spine fracture or injury. 2. Moderate degenerative spondylosis with mild levoconvex scoliosis. See above. Electronically signed by: Jorge Hein MD 04/04/2024 01:22 PM EST RP Dictated By: Jorge Hein MD Signed By: Electronically signed by Jorge Hein MD 04/04/24 1322 EXAMINATION: XR HIP, RIGHT CLINICAL INFORMATION: pain, injury COMPARISON: None available. TECHNIQUE: AP pelvis, and 2 views right hip. FINDINGS: Normal bone mineralization. No fracture, dislocation, or suspicious bone lesion. There is a bone island in the left lateral ilium. Normal joint spaces of both hips. The iliopectineal and ilioischial lines are intact. Minimal degenerative changes SI joints. Sacrum appears intact. Normal lower lumbar spine. Soft tissues are unremarkable. XR/XR hip RT w PEL1V IMPRESSION: No acute findings right hip or pelvis. Electronically signed by: Jorge Hein MD 04/04/2024 12:59 PM EST RP Dictated By: Jorge Hein MD Signed By: Electronically signed by Jorge Hein MD 04/04/24 1259 Radiology Impression Discussion of test interpretation with radiology: I have reviewed the radiologist's reading. Independent Historian Clinical information obtained from an independent historian. History obtained from or confirmed by: Other (patient's niece provided additional history and confirmed the history provided by the patient.) Discharge Plan Discharge Clinical Impression: Fall, Contusion Patient Disposition: Home, Self-Care Instructions: Fall Prevention for Older Adults (ED), Contusion in Adults (ED) Additional Instructions: Follow up with your primary care provider. Return to the emergency department immediately if your symptoms worsen or if you develop any dizziness, shortness of breath, difficulty breathing, chest pain, blurry vision, loss of vision, nausea, vomiting, abdominal pain, fever, chills, back pain, or any other complaints. Prescriptions: No Action donepezil 10 mg tablet 10 mg PO DAILY Referrals: Alicia Rooney MD [Primary Care Provider] - Print Language: [place]
[2024-04-04 15:09] VITALS: BP 115/62; PULSE 85; RESP 19; TEMP 36.6; O2SAT 98
== END 2024-04-04 15:11 | disposition home or self-care (01) ==
PROVIDERS: Emergency Provider Emergency Medicine; PCP Internal Medicine
DX: M25.551 Pain in right hip (principal); M54.50 Low back pain, unspecified; T14.8XXA Other injury of unspecified body region, initial encounter; W01.0XXA Fall on same level from slipping, tripping and stumbling without subsequent striking against object, initial encounter; E21.3 Hyperparathyroidism, unspecified; E20.9 Hypoparathyroidism, unspecified; G30.9 Alzheimer's disease, unspecified; F02.80 Dementia in other diseases classified elsewhere, unspecified severity, without behavioral disturbance, psychotic disturbance, mood disturbance, and anxiety; Z87.891 Personal history of nicotine dependence; Z79.899 Other long term (current) drug therapy; Y93.9 Activity, unspecified; Y92.009 Unspecified place in unspecified non-institutional (private) residence as the place of occurrence of the external cause; Y99.9 Unspecified external cause status
CPT/HCPCS: 70450; 72100; 72125; 73502; 99282; 99284

== ENCOUNTER → 2024-04-04 11:47 | Outpatient (BNV) | payer MEDICARE, SELFPAY | PROVIDERS: PCP Internal Medicine; Visit Provider Radiology Diagnostic Radiology | DX: M25.551 Pain in right hip (principal); M54.2 Cervicalgia; R51.9 Headache, unspecified; M54.50 Low back pain, unspecified | CPT/HCPCS: 70450; 72100; 72125; 73502 ==

== ENCOUNTER 2024-04-24 12:53 | Outpatient (AMB) | payer MEDICARE, SELFPAY ==
--- NOTE | 2024-04-24 12:56 | MHC.PC.OV ---
Vital Signs 04/24/24 12:57 Height 4 ft 11 in Weight 117 lb BMI 23.6 BP 110/72 Blood Pressure Location Lt brachial Position Sitting Intake Visit Reasons: Annual Exam Intake Note: Patient here for a physical exam L[employer] Text[employer] Restorer Required: No Accompanied by: shell Allergies No Known Allergies Allergy (Verified 04/24/24 13:16) Medication List - Last Reconciled 04/24/24 by Alicia Song MD donepezil 10 mg PO DAILY Tobacco use date assessed: 04/24/24 Fall risk assessment: 1 Fall in past year Last assessed Fall Risk: 04/24/24 Dental Screening Dental Screen Date: 04/24/24 Did you have a dental visit in the last 12 months?: Yes Did you have a dental problem in the last 6 months where you did not have access to dental care?: No Was dental information given to patient?: Patient has dentist HPI HPI Comments History of Present Illness Details The patient is an 88-year-old female presenting for her physical exam accompanied by shell Stevenson. She has arthritis, cognitive decline, incontinence, and for a comprehensive health assessment. The patient has a history of a fall down the stairs that resulted in a few x-rays and a CT scan, which revealed arthritis in the neck and spine. While this has caused some pain initially managed with Tylenol, her current condition shows improvement in eating habits and reduced use of pain medication. Cognitive decline is evident, with the patient struggling with memory, such as recalling recent events, and where household items, like socks, are located. Socially, she requires assistance in daily activities and displayed difficulties in awareness of current time. Incontinence is being managed with assistance from a radio personality who helps her with toileting and provides bed liners and diapers. The patient has not had a history of pneumonia vaccination, which has been noted for discussion. Past medical history includes hypertension, and she is currently on donepezil 10 mg daily. The patient is an 88-year-old female presenting for her physical exam. She has arthritis, cognitive decline, incontinence, and for a comprehensive health assessment. The patient has a history of a fall down the stairs that resulted in a few x-rays and a CT scan, which revealed arthritis in the neck and spine. While this has caused some pain initially managed with Tylenol, her current condition shows improvement in eating habits and reduced use of pain medication. Cognitive decline is evident, with the patient struggling with memory, such as recalling recent events, and where household items, like socks, are located. Socially, she requires assistance in daily activities and displayed difficulties in awareness of current time. Incontinence is being managed with assistance from a radio personality who helps her with toileting and provides bed liners and diapers. The patient has not had a history of pneumonia vaccination, which has been noted for discussion. Past medical history includes hypertension, and she is currently on donepezil 10 mg daily. - Pneumonia vaccine is not up-to-date; the need to administer it was discussed. [facility] Medical History Hyperparathyroidism Hypoparathyroidism Mild cognitive impairment Memory change Surgical History History of removal of pigmented skin lesion History of biopsy History of abdominoplasty History of carpal tunnel release History of nasal surgery Family History Father Alcoholic cirrhosis Mother Past heart attack Maternal Grandmother Cancer Maternal Grandfather CVD (cardiovascular disease) Past heart attack Brother Past heart attack Sister No problems noted. Family/Other Substance use disorder Social History Household Members: None Housing: House Alcohol intake: former Patient Tobacco Use Status: Former Tobacco user e-Cigarette/Vaping Use: Never Used Second Hand Smoke Exposure: No Advance Directives Date on File: 06/22/23 service: No Current occupational status: retired Cognitive needs: Yes Hearing needs: No Vision needs: Yes (Glasses) Questionnaire PHQ-9 Over the last 2 weeks, how often have you been bothered by any of the following problems? 1. Little interest or pleasure in doing things: not at all 2. Feeling down, depressed, or hopeless: not at all 3. Trouble falling or staying asleep, or sleeping too much: not at all 4. Feeling tired or having little energy: not at all 5. Poor appetite or overeating: not at all 6. Feeling bad about yourself - or that you are a failure or have let yourself or your family down: not at all 7. Trouble concentrating on things, such as reading the newspaper or watching television: not at all 8. Moving or speaking so slowly that other people could have noticed. Or the opposite - being so fidgety or restless that you have been moving around a lot more than usual: not at all 9. Thoughts that you would be better off or of hurting yourself in some way: not at all Total score: 0 Depression Screening Interpretation: Negative Depression Screening Done: Yes 98166 - PHQ-9 Billing: Yes Source: Developed by Drs. Kishor Mendenhall, Lelo Rai, Emir Hartman and colleagues, with an educational jaymie from [employer]. Thrive Questionnaire Date Thrive assessed: 04/24/24 I am a: Parent/Caregiver What is your living situation today?: I choose not to answer this question Within the past 12 months, did the food you bought not last and you didn't have the money to get more?: I choose not to answer this question Within the past 12 months, did you worry whether your food would run out before you got money to buy more?: I choose not to answer this question Do you have trouble paying for medicines?: No Do you have trouble getting transportation to medical appointments?: No Do you have trouble paying your heating and electricity bill?: No Do you have trouble taking care of your child, family member or friend?: I choose not to answer this question Do you have trouble with day-to-day activities such as bathing, preparing meals, shopping, managing finances, etc.?: I choose not to answer this question Are you currently unemployed and looking for a job?: I choose not to answer this question Are you interested in more education?: I choose not to answer this question Please select the resources that you would like help with: None Currently or been in a relationship where the following occur: I choose not to answer THRIVE Score: 0 AUDIT C Alcohol Use Questionnaire (AUDIT-C) 1. How often do you have a drink containing alcohol?: Never Total Score: 0 Score Reviewed/Action Taken: No GENNARO-7 AMB Questionnaire GENNARO-7 Date GENNARO - 7 assessed: 04/24/24 Feeling nervous, anxious, or on edge: 0 = Not at all Not being able to stop or control worryin = Not at all Worrying too much about different things: 0 = Not at all Trouble relaxin = Not at all Being so restless that it is hard to sit still: 0 = Not at all Becoming easily annoyed or irritable: 0 = Not at all Feeling afraid as if something awful might happen: 0 = Not at all Total GENNARO-7 score (0-4 normal; 5-9 mild; 10-14 moderate; 15-21 severe): 0 Source: Developed by Drs. Kishor Mendenhall, Lelo Rai, Emir Hartman and colleagues, with an educational jaymie from [employer]. GENNARO-7 Assessment Billing GENNARO-7 Assessment Tool: GENNARO-7 Assessment 78247 Review of Systems Const All systems reviewed & are unremarkable except as noted in HPI and below Card Denies chest pain at rest, Denies chest pain with activity, Denies edema, Denies irregular heart rhythm, Denies claudication, Denies dyspnea, Denies dyspnea on exertion, Denies orthopnea, Denies paroxysmal nocturnal dyspnea and Denies slow heart rate Resp Denies cough, Denies dyspnea and Denies dyspnea on exertion GI Denies abdominal pain, Denies change in bowel habits, Denies excessive flatus, Denies nausea and Denies vomiting Denies urinary incontinence, Denies urinary hesitancy and Denies urinary urgency Musc Denies abnormal gait, Denies atrophy, Denies deformity and Denies limited range of motion Skin/Breast Denies bleeding lesions, Denies changing lesions and Denies rash Neuro Denies abnormal gait, Denies lack of coordination and Reports memory loss Psych Reports memory loss Physical exam (Primary Care) Vital Signs: Last Vital Signs BP 110/72 04/24/24 12:57 BMI result Body Mass Index 23.6 Tobacco/Smoking Status: Tobacco use Status Tobacco use date assessed 04/24/24 04/24/24 13:01 Patient Tobacco Use Status Former Tobacco user 04/24/24 12:59 e-Cigarette/Vaping Use Never Used 04/24/24 12:59 PHQ-9: PHQ-9 Score PHQ-9: Total score 0 04/24/24 13:42 Depression Screening Interpretation: Negative Thrive Assessment: Date of Thrive Assessment Date Thrive assessed 04/24/24 04/24/24 12:59 Currently or been in a relationship where the following occur: I choose not to answer Const Orientation/consciousness: oriented to person and oriented to place HENVT Head: Yes normal to inspection, Yes normocephalic and Yes atraumatic Ears: external ears normal Eyes General: appearance normal, both eyes and all related structures Eyelids: Yes eyelids normal Conjunctivae: conjunctivae normal Neck Neck: Yes normal visual inspection and Yes supple Resp Effort & Inspection: normal respiratory effort Auscultation: clear to auscultation bilaterally Cardio Jugular venous distension: no JVD Rate: regular rate Rhythm: regular rhythm Heart sounds: S1 normal heart sound present and S2 normal heart sound present GI Inspection: Yes normal to inspection Palpation (GI): Soft to palpation and nontender Auscultation: normal bowel sounds Skin General skin exam: no rashes or lesions noted Neuro General: oriented to person, oriented to place and no focal motor deficits Extrem General: Yes full ROM Psych Appearance: grossly normal Office Procedures Flu Questionnaire Does the patient have a severe egg allergy?: No Immunizations Fluarix Triv [id number] (PF) 45 mcg (15 mcg x 3)/0.5 mL IM syringe Performing Provider: Alicia Song MD Performing Location: [facility] Adult Primary [facility] [place] Documented (not given) by: VERÓNICA Colby on 04/24/24 13:44 Reason Not Given: Received Previously pneumoc 20-eli conj-dip cr(PF) 0.5 mL IM syringe Performing Provider: Alicia Song MD Performing Location: [facility] Administered by: VERÓNICA Colby on 04/24/24 13:42 Dose Route Admin Location Dispensed Lot Number Expiration Date [facility] Manager Internal 0.5 mL IM Left Deltoid 0.5 mL [id number] 08/07/25 1014-4610-78 [employer] VIS Given Date VIS Provided VIS Publication Date 04/24/24 Single Vaccine 21 Eligibility Eligibility Date Funding Source Not [facility] Eligible 04/24/24 Private Coding Level of Care Code Est Pt Prev Care >65y(95840) Diagnoses Adult general medical exam Z00.00 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, psychotic disturbance, mood disturbance, or anxiety, unspecified timing of dementia onset G30.9; F02.B0 Alzheimer's disease onset: unspecified onset Dementia severity: moderate Dementia behavioral or psychological symptom: without behavioral, psychotic, or mood disturbance or anxiety Urge urinary incontinence N39.41 Additional Codes GENNARO-7 Assessment Billing - GENNARO-7 Assessment Tool: GENNARO-7 Assessment 42080 ([id number]) PHQ-9 - 97125 - PHQ-9 Billing: Yes ([id number]) Time Spent (min) 33 Assessment & Plan Assessment & Plan (1) Adult general medical exam: Code(s): Z00.00 - Encounter for general adult medical examination without abnormal findings Category: Medical (2) Alzheimer's dementia: Code(s): G30.9 - Alzheimer's disease, unspecified; F02.80 - Dementia in other diseases classified elsewhere, unspecified severity, without behavioral disturbance, psychotic disturbance, mood disturbance, and anxiety Category: Medical Qualifiers: Alzheimer's disease onset: unspecified onset Dementia severity: moderate Dementia behavioral or psychological symptom: without behavioral, psychotic, or mood disturbance or anxiety Qualified Code(s): G30.9 - Alzheimer's disease, unspecified; F02.B0 - Dementia in other diseases classified elsewhere, moderate, without behavioral disturbance, psychotic disturbance, mood disturbance, and anxiety (3) Urge urinary incontinence: Code(s): N39.41 - Urge incontinence Category: Medical Plan - Administer the pneumonia vaccine during this visit. - Continue current use of pull-ups and incontinence aids. - Encourage caregiver assistance with daily activities, including meal preparation and hygiene. - No lab work proposed; continue monitoring weight and dietary intake to ensure nutritional needs are met. - Scheduled follow-up to assess memory and cognitive function. Patient was informed and verbally consented to the use of an ambient scribe for clinic note documentation during this visit. During the assessment, I discussed the importance of managing arthritis-related symptoms with the use of [id number] analgesics as needed, given the patient's report of improvement. Cognitive decline was addressed by reinforcing the role of structured routines and the assistance of the personal clothing laundry aide to support activities of daily living. I discussed the option of pneumonia vaccination and confirmed it would be administered. The continuity of Incontinence care was emphasized through continued usage of pull-ups and bed liners. Additionally, we talked about using familiar foods to encourage adequate nutrition, and the discussion covered potential modifications to the household appliances, specifically the gas stove, to ensure safety. Orders: Orders Influenza [id number] Immunization Today Z23 - Encounter for immunization Pneumococcal 20 Immunization Today Z23 - Encounter for immunization Medications: New underpads (Bed Underpads) As directed 100 ea 3RF F02.B0 - Dementia in other diseases classified elsewhere, moderate, without behavioral disturbance, psychotic disturbance, mood disturbance, and anxiety, G30.9 - Alzheimer's disease, unspecified, N39.41 - Urge incontinence [adult diapers pull-ups] As directed 240 ea 11RF F02.B0 - Dementia in other diseases classified elsewhere, moderate, without behavioral disturbance, psychotic disturbance, mood disturbance, and anxiety, G30.9 - Alzheimer's disease, unspecified, N39.41 - Urge incontinence Patient Instructions: - Please ensure the patient receives the pneumonia vaccine today. - Follow up with continuous use of incontinence products as instructed. - Continue to assist with daily activities and maintain a structured daily routine. - Encourage safe meal preparations and consider shutting off the gas stove as a safety precaution. - Monitor and report any significant changes in memory or activities of daily living at the next visit.
[2024-04-24 12:57] VITALS: BP 110/72; BMI 23.6
== END 2024-04-24 13:43 | disposition home or self-care (01) ==
PROVIDERS: PCP Internal Medicine; Visit Provider Internal Medicine
DX: Z00.00 Encounter for general adult medical examination without abnormal findings (principal); G30.9 Alzheimer's disease, unspecified; F02.B0 Dementia in other diseases classified elsewhere, moderate, without behavioral disturbance, psychotic disturbance, mood disturbance, and anxiety; N39.41 Urge incontinence; Z23 Encounter for immunization